=== PATIENT | male | born 1990 | race African-American/Black ===

== ENCOUNTER 2018-07-16 09:40 | Emergency (ER) | payer OTHER ==
[~2018-07-16] VITALS: Ht 180.3 cm; Wt 67.6 kg
[2018-07-16 09:45] VITALS: Ht 180.3 cm; Wt 67.6 kg
[2018-07-16 10:48] LABS: BASOPHIL % 0.2 % (0-2); PLATELET COUNT 209 x10^3mcL (130-400); RED CELL DISTRIBUTION WIDTH 13.1 % (11.5-14.5)
[2018-07-16 11:06] LABS: CALCIUM 8.9 mg/dL (8.5-10.1); CARBON DIOXIDE 32.6 mmol/L (21-32); CHLORIDE SERUM 102 mmol/L (98-107); CREATININE SERUM 1.2 mg/dL (0.7-1.3); GFR1 > 60 mL/min; GLUCOSE SERUM 94 mg/dL (74-106); POTASSIUM SERUM 4.6 mmol/L (3.5-5.1); SODIUM SERUM 139 mmol/L (136-145)
[2018-07-16 11:11] LABS: ALBUMIN 3.8 g/dL (3.4-5.0); ALKALINE PHOSPHATASE 80 U/L (46-116); ALT/SGPT 18 U/L (16-63); AST/SGOT 19 U/L (15-37); BILIRUBIN TOTAL 0.28 mg/dL (0.20-1.00); TOTAL PROTEIN, SERUM 7.6 g/dL (6.4-8.2)
[2018-07-16 13:00] VITALS: BP 120/75
== END 2018-07-16 13:00 | disposition home or self-care (01) ==
LOC: ED 09:40
PROVIDERS: Emergency Medicine
DX: J40 Bronchitis, not specified as acute or chronic (principal)
CPT/HCPCS: 36415; 36600; Q0092

== ENCOUNTER 2018-07-18 19:59 | Emergency (ER) | payer OTHER ==
[~2018-07-18] VITALS: Ht 180.3 cm; Wt 68.9 kg
[2018-07-18 20:04] VITALS: Ht 180.3 cm; Wt 68.9 kg
[2018-07-18 21:13] VITALS: BP 123/76
== END 2018-07-18 21:13 | disposition home or self-care (01) ==
LOC: ED 19:59
DX: J20.9 Acute bronchitis, unspecified (principal)

== ENCOUNTER 2020-05-06 11:07 | Emergency (ER) | payer OTHER ==
[~2020-05-06] VITALS: Ht 180.3 cm; Wt 68.0 kg
[2020-05-06 11:14] VITALS: Ht 180.3 cm; Wt 68.0 kg
[2020-05-06 13:21] VITALS: BP 128/74
== END 2020-05-06 13:21 | disposition home or self-care (01) ==
LOC: ED 11:07
DX: S62.002A Unspecified fracture of navicular [scaphoid] bone of left wrist, initial encounter for closed fracture (principal); W01.0XXA Fall on same level from slipping, tripping and stumbling without subsequent striking against object, initial encounter; Y93.89 Activity, other specified; Y92.89 Other specified places as the place of occurrence of the external cause; Y99.8 Other external cause status